=== PATIENT | female | born 1980 | race Two or more races ===

== ENCOUNTER 2021-04-18 14:40 | Emergency (ER) | payer MEDICAID, SELFPAY ==
[~2021-04-18] VITALS: Ht 149.9 cm; Wt 77.1 kg
[2021-04-18 14:44] VITALS: BP_SYST 138
--- NOTE | 2021-04-18 14:50 | NUR ---
pt. came in complaining of "having a cold," also states has a DUBOSE but it is not painful
--- NOTE | 2021-04-18 15:11 | NUR ---
covid swab performed outside in tent and sent to lab
--- NOTE | 2021-04-18 15:35 | NUR ---
ER at bedside examining patient.
--- NOTE | 2021-04-18 18:05 | NUR ---
Patient given written and verbal discharge instructions and verbalizes understanding. ER Dr. Agarwal discussed with patient the results and treatment provided. Patient in stable condition. ID arm band removed. Patient educated on pain management and to follow up with PMD. Pain Scale 2. Opportunity for questions provided and answered.
[2021-04-18 18:06] VITALS: BP_SYST 145
== END 2021-04-18 18:06 | disposition home or self-care (01) ==
LOC: SED 14:40
DX: J06.9 Acute upper respiratory infection, unspecified (principal); Z20.822 Contact with and (suspected) exposure to COVID-19
CPT/HCPCS: 36415; 99283